=== PATIENT | male | born 1970 | race Caucasian/White ===

== ENCOUNTER → 2016-09-26 | Outpatient (CLI) | payer OTHER ==
[~2016-09-26] MED LIST: CELE200C PO; GLUC1TAB69 PO; MULT1TAB52 PO
[2016-09-26 10:44] LABS: BASO # 0.1 x10^3/uL (0.0-0.2); BASO % 1 % (0-3); EOS % 6 % (0-3); HEMATOCRIT 43.9 % (39.0-53.0); HEMOGLOBIN 15.5 g/dL (13.0-17.5); LYMPH # 2.6 x10^3/uL (1.0-4.8); LYMPH % 33 % (24-48); MEAN CORPUSCULAR HEMOGLOBIN 29 pg (25-35); MEAN CORPUSCULAR HGB CONC 35 g/dL (31-37); MEAN CORPUSCULAR VOLUME 84 fL (79-100); MONO % 7 % (0-9); NEUT % 53 % (31-73); PLATELET COUNT 259 x10^3/uL (140-400); RED BLOOD COUNT 5.25 x10^6/uL (4.30-5.70); RED CELL DISTRIBUTION WIDTH 13.2 % (11.5-14.5); WHITE BLOOD COUNT 7.9 x10^3/uL (4.0-11.0)
[2016-09-26 10:58] LABS: ALBUMIN 3.7 g/dL (3.4-5.0); CALCIUM 9.1 mg/dL (8.5-10.1); CREATININE 1.1 mg/dL (0.7-1.3); GFR 71.8; POTASSIUM 4.2 mmol/L (3.5-5.1); PROTHROMBIN TIME PATIENT 12.9 SEC (11.7-14.0)
[2016-09-26 12:22] LABS: BILIRUBIN,URINE NEGATIVE (NEG); GLUCOSE,URINE NEGATIVE (NEG); NITRITE,URINE NEGATIVE (NEG); PROTEIN,URINE NEGATIVE (NEG-TRACE); UROBILINOGEN,URINE 0.2 mg/dL (0.2 mg/dL)
[2016-09-26 13:05] LABS: BACTERIA,URINE 0 /HPF (0-FEW); RBC,URINE 0 /HPF (0-2); SQUAMOUS EPITHELIAL CELL,UR FEW /LPF; WBC,URINE 0 /HPF (0-4)
--- NOTE | 2016-09-26 13:07 | EKG ---
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
--- NOTE | 2016-09-26 13:40 | RAD ---
Indication preop. Anticipated knee replacement. PA and lateral views of the chest were obtained. No prior imaging of the chest is available. The heart and pulmonary vessels appear normal. The lungs are clear. There is no pleural fluid or pneumothorax. The bony structures appear grossly intact. IMPRESSION: No acute or focal process is seen in the chest
== END | disposition home or self-care (01) ==
LOC: SURGPAT 15:34
PROVIDERS: ATTEND Orthopaedic Surgery
DX: Z01.818 Encounter for other preprocedural examination (principal)
CPT/HCPCS: 36415; 71020; 80048; 81001; 82040; 85027; 85610; 85651; 85730; 87641; 93005

== ENCOUNTER 2016-10-25 05:50 | Inpatient (IN) | payer OTHER ==
[2016-10-24] MEDS: IV RINGERS,LACTATED 1000ML 1,000 ML IV SCH (20:08)
[2016-10-25] VITALS (8 sets, daily range): BP systolic 119–139; BP diastolic 68–82
[~2016-10-25] VITALS: Ht 167.6 cm; Wt 83.9 kg
[~2016-10-25 05:50] MED LIST changes: +HYDROmorphone 2 MG/ML VIAL IV PRN; +LIDOCAINE 1% 1 ML SYRINGE. ID PRN; +MEPERIDINE PF 25 MG/ML VIAL. IV PRN; +MIDAZOLAM HCL/PF 2 MG/2 ML VIAL. IV PRN; +MORPHINE SULFATE 4 MG/ML DISP.SYRIN. IV PRN; +PROCHLORPERAZINE 10 MG/2 ML VIAL. IV PRN; +diphenhydrAMINE 50 MG/ML VIAL IV PRN; +fentaNYL PF VIAL 100 MCG/2 ML VIAL IV PRN
[2016-10-25] MEDS ORDERED: MORPHINE SULFATE 5 MG, KETOROLAC TROMETHAMINE 30 MG, ROPIVacaine 0.5% PF 60 ML, EPINEPH... INT ART ONE ×5 (06:00)
[2016-10-25] MEDS ORDERED: TRANEXAMIC ACID 1,000 MG in IV NORMAL SALINE 50ML 50 ML INJ ONE ×2 (06:00→08:00)
[2016-10-25] MEDS ORDERED: HYDROcodone/APAP 7.5/325MG 1 TAB TABLET ONE (06:11)
[2016-10-25] MEDS: IV RINGERS,LACTATED 1000ML 1,000 ML IV SCH (06:29)
[2016-10-25 06:55] LABS: INR 1.1 (0.8-1.1); PROTHROMBIN TIME PATIENT 13.4 SEC (11.7-14.0)
[2016-10-25] MEDS ORDERED: HYDROcodone/APAP 7.5/325MG 1 TAB TABLET PO ONE (07:00)
[2016-10-25] MEDS ORDERED: DEXAMETHASONE SOD PHOS 20 MG/5 ML VIAL. ONE (07:09)
[2016-10-25] MEDS ORDERED: LIDOCAINE 2% PF Vial for OR 5 ML VIAL. ONE (07:09)
[2016-10-25] MEDS ORDERED: ONDANSETRON PF 4 MG/2 ML VIAL. ONE (07:09)
[2016-10-25] MEDS ORDERED: PROPOFOL 20 ML IV ONE (07:09)
[2016-10-25] MEDS ORDERED: MIDAZOLAM HCL/PF 2 MG/2 ML VIAL. ONE (07:11)
[2016-10-25] MEDS ORDERED: fentaNYL PF VIAL 250 MCG/5 ML VIAL ONE (07:11)
--- NOTE | 2016-10-25 07:31 | ACF ---
Admission Forms Criteria MUSCULOSKELETAL DISEASE GRG Clinical Indications for Admission to Inpatient Care (Place 'X' for any and all applicable criteria): Hospital admission is needed for appropriate care of the patient because of 1 or more of the following: [ ]I. Fracture, dislocation, or other musculoskeletal injury requiring inpatient care(medical) as indicated by 1 or more of the following(4)(5)(6)(7) [ ]a) Vertebral fracture requiring observation for instability or neurologic compromise (8) [ ]b) Compartment syndrome (proven or cannot be ruled out during observation level of care) (9) [ ]c) Limb-threatening injury [ ]d) Major injury requiring inpatient stabilization such as traction initiation or external fixation before internal fixation or closure of complex or open fracture [ ]e) Major injury requiring inpatient treatment after emergency or observation level care (as appropriate) [ ]f) Severe pain requiring acute inpatient management [ ]g) Injury with suspicion of abuse or neglect (eg., child, dependent elderly) [ ]II. Newly diagnosed or suspected bone, joint, or orthopedic device infection (e.g., osteomyelitis, septic arthritis) needing 1 or more of the following(1)(2)(3) [ ]a) IV antibiotics that cannot be initiated in other than inpatient setting (e.g., patient too unstable or home infusion not available) [ ]b) Device removal or replacement [ ]c) Bone or soft tissue debridement [ ]d) Joint drainage (drain placement or repetitive aspirations) [ ]III. Severe rheumatologic disease (e.g., systemic lupus erythematosus, rheumatoid arthritis) with complications or comorbidities (Also use Optimal Recovery Care Criteria or General Recovery Criteria as appropriate on the basis of predominant condition), including 1 or more of the following( 10)(11)(12)(13) [ ]a) Severe infection (e.g., SENIOR DATASTAGE DEVELOPER infection, sepsis) (14) [ ]b) Respiratory complications, including 1 or more of the following : [ ]i) Pleural effusion with respiratory compromise [ ]ii) Pulmonary hypertension with congestive failure [ ]iii) Respiratory failure [ ]iv) Pulmonary hemorrhage (15) [ ]c) Hematologic disease, including 1 or more of the following: [ ]i) Coagulopathy with bleeding [ ]ii) Thrombosis with hypercoagulable state [ ]iii) Thrombotic thrombocytopenic purpura [ ]d) Cerebritis with seizures, psychosis, or other severe abnormalities [ ]e) Vertebral destruction with monitoring needed for cervical myelopathy& possible respiratory compromise [ ]f) Exacerbation that requires inpatient treatment (e.g., intravenous immunosuppression) (16) [ ]g) Acute renal failure [ ]h) Cerebritis with seizures, psychosis, Altered mental status, or other neurologic abnormalities [ ]i) Pericardial effusion with tamponade [ ]j) Vertebral destruction, with monitoring needed for cervical myelopathy and possible respiratory compromise [ ]IV. Severe vasculitis with complications or comorbidities (Also use Optimal Recovery Care Criteria General Recovery Criteria as appropriate on the basis of predominant condition), including 1 or more of the following(11)(12)(17)(18)(19)(20) [ ]a) Exacerbation that requires inpatient treatment (e.g., intravenous immunosuppression) (19)(21) [ ]b) Pulmonary hemorrhage (15) [ ]c) SENIOR DATASTAGE DEVELOPER vasculitis with seizures, psychosis, Altered mental status that is severe or persistent, or other severe abnormalities (22) [ ]d) Cerebral infarction [ ]e) Gastrointestinal ischemia [ ]f) Gangrene or threatened amputation [ ]g) Renal failure (16) [ ]h) Other significant complications of vasculitis ( eg., tissue or organ ischemia, organ dysfunction ) [ ]V. Severe myopathy as indicated by 1 or more of the following (28)(29) [ ]a) New onset of airway compromise or inability to swallow [ ]b) Respiratory deterioration with observation needed for impending respiratory failure [ ]c) Exacerbation that requires inpatient treatment (e.g., intravenous immunosuppression) [ ]. Severe crystal gout (arthropathy) indicated by 1 or more of the following (23)(24) [ ]a) Severe pain requiring acute inpatient management [ ]b) Exacerbation that requires inpatient treatment (e.g., intravenous treatment) [ ]VII.Rhabdomyolysis and 1 or more of the following (25)(26)(27) [ ]a) Acute renal failure [ ]b) Need for intravenous hydration after emergency or observation level care (as appropriate) [ ]c) Inability to maintain oral hydration [ ]d) Change in mental status [ ]e) Electrolyte abnormality that remains after emergency or observation level care (as appropriate) [ ]VIII Post amputation complication, as indicated by ANY ONE of the following [ ]a) Infection [ ]b) Dehiscence [ ]c) Myodesis failure [X]IX. Severe pain requiring acute inpatient management due to musculoskeletal condition [ ]X. Musculoskeletal Disease and ALL of the following: [ ]a) Symptom or finding for which emergency and observation care have failed or are not considered appropriate (Use General Criteria: Observation Care as appropriate) [ ]b) Presence of ANY ONE of the following [ ]i) A General Admission Criteria [ ]ii) A Pediatric General Admission Criteria The original [facility] [employer] content created by [email or web address] has been revised. The portions of the content which have been revised are identified through the use of italic text or in bold, and [facility] has neither reviewed nor approved the modified material. All other unmodified content is copyright [facility]. Please see references footnoted in the original [facility] edition 2016 Admission Criteria Met?: Yes APRIL YU Oct 25, 2016 07:31
--- NOTE | 2016-10-25 09:24 | HP ---
ADMIT DATE: 10/25/2016 PRINCIPAL DIAGNOSIS: Medial compartment degenerative joint disease and right knee pain. HISTORY OF PRESENT ILLNESS: The patient is a 46-year-old male who has undergone extensive nonoperative treatment, failing injections, activity modification, and most recently used an neighborhood coordinator brace that gave him significant relief of his pain. After the use of the neighborhood coordinator brace he feels markedly increased pressure on the knee and difficulty doing very minimal activities, even taking a shower, walking around near bedtime and he feels weak with some giving out with the knee. In addition, with more vigorous activities with the brace, he has more difficulties keeping it in place and for those reasons wanted to proceed with a more definitive treatment of his issues. PAST MEDICAL HISTORY: Really has minimal medical history. PAST SURGICAL HISTORY: Previous history of knee surgeries. FAMILY HISTORY: Denies any significant family history. SOCIAL HISTORY: Denies smoking or drug use. Occasional alcohol consumption, is a social drinker only. MEDICATIONS: List really only includes Celebrex, Osteo Bi-Flex and vitamins ALLERGIES: HE HAS NO KNOWN DRUG ALLERGIES. SPECIFICALLY, HE HAS TOLERATED PERCOCET WELL IN THE PAST. REVIEW OF SYSTEMS: Denies any chest pain, shortness of breath, fever, chills, constitutional symptoms of any type, significant mainly for the right knee pain and limitations somewhat summarized above. PHYSICAL EXAMINATION: VITAL SIGNS: Per admission sheet. HEENT: Atraumatic, normocephalic. HEART: Regular rate and rhythm. LUNGS: Clear to auscultation bilaterally. ABDOMEN: Benign. EXTREMITIES: Examination of the right knee reveals slight varus deformity, mild patellofemoral crepitus, without tilt or instability. ____ medial collateral ligament, but otherwise good ligament stability, particularly the ACL. He has normal examination of the contralateral knee, normal alignment, stability of bilateral hips and ankles with intact motor function, distal pulses, sensation, reflexes and skin in both lower extremities throughout. IMPRESSION: Primary osteoarthritis, right knee, medial compartment. TREATMENT PLAN: I had previously discussed with him in clinic the risks, benefits, postoperative course of the planned unicompartmental arthroplasty, possibility of continued use of the neighborhood coordinator brace downsides of which he identified in the history of present illness. We talked about the fact that this would preserve more of his kinematics of the knee and while he eventually develops more pain in other compartments, may need revision to a total knee arthroplasty. I think given his young age and activity level and the specific distribution of his disease, feel that this is a good trade-off and hopeful that this may be a treatment for much more longer term for him. We talked about possibility of a tibial osteotomy, relative disadvantages of that, in terms of revision to a total knee arthroplasty in the future if required, and the possibilities of even with this procedure, infection, premature wear, loosening, instability, nerve or blood vessel damage, medical or other anesthetic complications among others. He verbalizes understanding of all these and wants to proceed with surgical evaluation and treatment, which will occur today with [facility] admission to follow. MIKHAIL OLMSTEAD MD DR: CYNTHIA/nts JOB#: [id number] / [id number]
[2016-10-25] MEDS ORDERED: SEVOFLURANE > 120 MINUTES. IH ONE (10:02)
--- NOTE | 2016-10-25 11:11 | PDOC ---
BRIEF OPERATIVE NOTE Date: Oct 25, 2016 Pre-Op Diagnosis right knee medial compartment djd, previous intact ACL reconstruction Post-Op Diagnosis same Procedure Performed right knee Meade unicondylar arthroplasty, removal retained ACL tibial fixation screw Surgeon Katharine Anesthesia Type: General Blood Loss 100cc Specimens Obtained cartilage surfaces to pathology Findings above, isolated medial disease, ACL intact Complications none MIKHAIL OLMSTEAD MD Oct 25, 2016 11:11
[2016-10-25] MEDS ORDERED: DEXTROSE 50% 25 GM / 50ML DISP.SYRIN. IV PRN (11:15)
[2016-10-25] MEDS ORDERED: fentaNYL PF VIAL 100 MCG/2 ML VIAL IV PRN ×2 (11:15)
[2016-10-25] MEDS ORDERED: MORPHINE SULFATE 4 MG/ML DISP.SYRIN. IV PRN (11:15)
[2016-10-25] MEDS ORDERED: HYDROcodone/APAP 7.5/325MG 1 TAB TABLET PO PRN (11:15)
[2016-10-25] MEDS ORDERED: PROCHLORPERAZINE 10 MG/2 ML VIAL. IV PRN (11:15)
[2016-10-25] MEDS ORDERED: ZOLPIDEM 5 MG TABLET. PO PRN (11:15)
[2016-10-25] MEDS ORDERED: diphenhydrAMINE 50 MG/ML VIAL IV PRN (11:15)
[2016-10-25] MEDS ORDERED: oxyCODONE/APAP 7.5/325 1 TAB TABLET PO PRN (11:15)
[2016-10-25] MEDS ORDERED: oxyCODONE/APAP 5/325 1 TAB TABLET PO PRN (11:15)
[2016-10-25] MEDS ORDERED: ACETAMINOPHEN 325 MG TABLET. PO PRN (11:15)
[2016-10-25] MEDS ORDERED: traMADol 50 MG TABLET PO PRN ×2 (11:15)
[2016-10-25] MEDS ORDERED: 0.9 % SODIUM CHLORIDE 10 ML DISP.SYRIN. IV PRN (11:15)
[2016-10-25] MEDS ORDERED: CALCIUM CARBONATE 500 MG TAB.CHEW PO PRN (11:15)
[2016-10-25] MEDS ORDERED: MORPHINE SULFATE 2 MG/ML DISP.SYRIN. IV PRN (11:15)
[2016-10-25] MEDS: fentaNYL PF VIAL 100 MCG/2 ML VIAL IV PRN ×2 (11:33→12:01)
--- NOTE | 2016-10-25 11:39 | RAD ---
Indication postop. AP and lateral views of the right knee were obtained. Hemiarthroplasty and an orthopedic screw are noted. Postoperative changes are seen in the soft tissues. No unexpected finding is seen
[2016-10-25] MEDS: IV DEXTROSE 5 %-0.45 % NACL 1,000 ML IV SCH ×2 (11:59→21:11)
[2016-10-25] MEDS ORDERED: WARFARIN 7.5 MG TABLET. PO ONE (16:00)
[2016-10-25] MEDS: FERROUS SULFATE 325 MG TABLET. PO SCH (16:14)
[2016-10-25] MEDS: CELECOXIB 200 MG CAPSULE. PO SCH (21:12)
[2016-10-25] MEDS: HYDROcodone/APAP 10/325 1 TAB TABLET PO PRN (21:12)
[2016-10-26 02:29] VITALS: BP 125/63
[2016-10-26] MEDS: IV DEXTROSE 5 %-0.45 % NACL 1,000 ML IV SCH (03:11)
[2016-10-26 05:42] LABS: INR 1.9 (0.8-1.1); PROTHROMBIN TIME PATIENT 20.4 SEC (11.7-14.0)
[2016-10-26] MEDS ORDERED: MAGNESIUM HYDROXIDE 2,400 MG/30 ML ORAL.SUSP. PO PRN (06:00)
[2016-10-26 07:20] VITALS: BP 124/75
[2016-10-26 07:52] LABS: HEMOGLOBIN 13.3 g/dL (13.0-17.5)
[2016-10-26] MEDS ORDERED: MULTIVITAMIN with MINERAL TABLET. PO SCH (09:00)
[2016-10-26] MEDS ORDERED: SENNOSIDES/DOCUSATE 8.6/50MG TABLET. PO SCH (09:00)
[2016-10-26] MEDS: FERROUS SULFATE 325 MG TABLET. PO SCH (09:10)
[2016-10-26] MEDS: CELECOXIB 200 MG CAPSULE. PO SCH (09:10)
[2016-10-26] MEDS: HYDROcodone/APAP 10/325 1 TAB TABLET PO PRN (09:11)
--- NOTE | 2016-10-26 12:31 | OP ---
DATE OF SURGERY: 10/25/2016 PREOPERATIVE DIAGNOSIS: Degenerative joint disease, right knee. POSTOPERATIVE DIAGNOSIS: Degenerative joint disease, right knee. PROCEDURE: Right Dewart medial unicompartmental arthroplasty, right knee. SURGEON: Bebeto Alcantar M.D. PURCHASE PRICE ANALYST: Suki Muñoz. ESTIMATED BLOOD LOSS: 75 mL. COMPLICATIONS: None. OPERATIVE INDICATIONS: The patient is a 46-year-old male with severely limiting right knee pain, worse with activity initially and it has been unresponsive to injections and other nonoperative management, specifically, I placed him in an architectural examiner brace, which gave him good relief for initial activity, but he had difficulties with steadying up the brace despite multiple attempts and indicates that after activity during the day, when he takes the brace off, even for very simple activity, such as getting in the shower or walking around a little bit before bed, has very severe pain and instability, which again is extremely limiting to him in his daily activities. We therefore talked about the possibility of arthroplasty of his knees, specifically, a unicondylar arthroplasty, given his isolated disease and we had gone over risks, benefits, postoperative course of the procedure, including the possibility of infection, nerve or blood vessel damage, medical or other anesthetic complications among others as well as premature wear or loosening, possibility of eventual conversion over to another procedure if the wear progresses in other compartments or other issues occur that necessitated. All his questions were answered. Consent was obtained and he agrees to proceed with operative evaluation and treatment. OPERATIVE TECHNIQUE: The patient was identified, procedure verified, patient placed in the supine position on operating table and then the laterally placed leg cortes was used for the thigh rest and thigh tourniquet to place the leg optimally for the procedure. All other bony prominences were well padded and after timeout was performed, the patient and procedure identified and verified. The thigh tourniquet was inflated and a midline incision was made with a medial parapatellar approach. Fat pad was excised. There was ____ significant patellar chondromalacia or osteophytes present. The lateral compartment was well preserved as was the reconstructed anterior cruciate ligament. The medial compartment was again noted to be degenerative with significant anterolateral wear primarily and the procedure was confirmed. The tibial cutting guide was first placed, centered down the tibial crest and with the second metatarsal. The guide was placed in the medial compartment, after sizing, confirming a size medium having best fit to the distal femur consistent with preoperative templating and the tibial guide was clamped together with the other guide for resection level and was pinned. Resection level initially looked excessive based on the wear and I made less generous cut, but that was actually required to be recut during the procedure to achieve an adequate joint space to accommodate the available spacers. Intramedullary guide was then placed in the femur and after osteophytes were removed, the central line of the weightbearing surface was marked, 4 mm hole anteriorly and 6 mm hole at the center where then drilled with the 6 mm hole was desired on the central line of the femoral surface. The posterior cutting jig was then alignment to these drill holes and verified to be placed, such that a square gap was obtained at the posterior condyle area. The zero peg was then placed and the distal reamer carried out along with a trial femoral and tibial component. The component was noted to be tight in extension and a total of an additional 3 mm reamed after distal femoral condyle and any remaining excess bone was removed with rongeurs. As mentioned before, an additional 2 mm of tibial cut were required to accommodate desired spacer within thinnest level and I elected to not make additional tibial cut to preserve the existing bone. Nevertheless at this point, spacer was well fitting. Flexion and extension gaps were excellent. The anatomic alignment of the knee and the tension of the medial collateral ligament were restored and tracking noted to be excellent. The spacer was stable and not having any excessive contact with the medial wall, but again was in excellent alignment. The impingement drilling and chiseling guide was then placed to remove any excess bone, anteriorly and posteriorly, to prevent any impingement. The desired size C tibial tray was placed and pinned and the tibial notch cut was made and provisional trialing was carried out of the entire construct with the medium femur, a size D tibial tray and a 3 mm spacer, excellent motion, stability, and ligament balance were obtained and the trial components were removed. Bony surfaces were cleaned by pulse lavage and dried thoroughly. Polymethyl methacrylate cement was used to cement the tibial component in. The tibial component was placed from posterior to extrude any excess cement anteriorly ideally and was removed with a Speculator elevator. Femoral component was then placed and again excess cement removed. Trial 3-mm spacer was placed and provided equivalent stability down once it was trialed with cement dry. Trial was then removed and additional thorough irrigation carried out with normal saline solution. Previous electrocautery had coagulated any intracapsular bleeding. The intra-articular mixture was injected into the surrounding capsule and a right medial medium sized 3-mm spacer was popped in place, giving equivalent motion and stability to that as described before. The retinaculum was closed with #2 Ethibond suture in an interrupted fashion and a running #1 Vicryl suture, subcutaneous closure with buried Vicryl sutures, subcuticular Monocryl closure. Sterile dressings were applied. The patient was returned to recovery room in stable condition having tolerated the procedure well. Tourniquet time just slightly an excess of 2 hours and toes were noted to be warm and pink following deflation of the tourniquet. Please note, Suki Muñoz, graphic design assistant was present for the procedure, assisted in the prepping, draping, retraction, and subcuticular closure. BEBETO ALCANTAR MD DR: CYNTHIA/mikhail JOB#: [id number] / [id number] ecc Mike Escalante MD
[2016-10-26] MEDS ORDERED: WARF3TAB54 PO (13:38)
[2016-10-26] MEDS ORDERED: OXYC-323 PO (13:39)
[2016-10-26] MEDS ORDERED: WARFARIN 3 MG TABLET. PO ONE (14:00)
[2016-10-26] MEDS ORDERED: BISACODYL 10 MG SUPP.RECT. PR PRN (16:00)
--- NOTE | 2016-10-27 03:18 | DS ---
DATE OF DISCHARGE: 10/26/2016 PRINCIPAL DIAGNOSIS: Right unicondylar knee arthroplasty. DISCHARGE MEDICATIONS: Include Percocet 5/325 one to two p.o. q. 4 hours p.r.n. pain, Coumadin as directed by anticoagulation clinic, resume home medications. DISCHARGE INSTRUCTIONS: Include report any redness, drainage, fever, chills, uncontrolled pain or other problems. Otherwise, weightbearing as tolerated. ACTIVITY: As tolerated. Physical therapy at [facility] starting tomorrow, day after discharge. Follow up with Dr. Alcantar in 2 weeks. BRIEF DESCRIPTION OF HOSPITAL COURSE: The patient underwent an uneventful unicondylar right knee arthroplasty, medial, on date of admission. Postoperatively, did well with physical therapy as well as on postop day #1. Initially was taking some hydrocodone for pain, but after physical therapy, was less well controlled and better controlled on Percocet. Otherwise, got along quite well safely with his activities of daily living and was discharged home in stable condition. MIKHAIL ALCANTAR MD DR: CYNTHIA/mikhail JOB#: [id number] / [id number] CHE Gallego
--- NOTE | 2016-10-27 13:45 | PATHOLOGY ---
PATHOLOGY REPORT * * * * * * * * FINAL DIAGNOSIS: Fragments of bone and soft tissue, "right knee bone and tissue," joint resection: - Degeneration of cartilage consistent with degenerative joint disease. (NAVIN:; d/t: 10/27/16) REPORT ELECTRONICALLY SIGNED BY: Josias Tom M.D. DATE/TIME: 10/27/2016 13:44 * * * * * * * * GROSS PATHOLOGY: The specimen is received in formalin labeled "Jarred Johnson, right knee bone and tissue". Received are multiple segments of light muhammad bone displaying smooth articulating surfaces measuring 7.5 x 6.2 x 1.9 cm in aggregate dimensions. The specimen is submitted representatively in cassette A1, following decalcification. (CAA; 10/26/2016) INITIAL CPT CODE(S): A; 93016, 71655 Professional services [place] [address] Technical services performed by [facility] at [address] [place] [address], [address] [address]. [address]. Boris Ellis fax: SPECIMEN(S) RECEIVED: A.Right knee bone and tissue CLINICAL HISTORY: Right knee pain PATIENT: JARRED JOHNSON /AGE: 10 1970 (Age: 46) PATIENT #: [id number] ALT CASE #: SPECIMEN COLLECTION DATE: 10/25/2016 SPECIMEN RECEIVED DATE: 10/25/2016 [facility] - [address] [place] [address] - PHONE: [phone] * * * END OF REPORT * * *
== END 2016-10-26 15:35 | disposition home or self-care (01) | DRG 470 ==
LOC: OPSVCIP 05:50 → EDUNIT# 07:30 → 4 SOUTHEST 12:13
PROVIDERS: ADMIT Orthopaedic Surgery; ATTEND Orthopaedic Surgery
PROC: 0SRC0L9 Replacement of Right Knee Joint with Medial Unicondylar Synthetic Substitute, Cemented, Open Approach (ICD-10-PCS; principal; 2016-10-25 07:30)
DX: M17.11 Unilateral primary osteoarthritis, right knee (principal)
CPT/HCPCS: 36415; 73560; 85014; 85018; 85610; 85730; 86850; 86900; 86901; 88305; 88311; J0171; J0690; J0780; J1100; J1885; J2250; J2270; J2405; J2704; J2795; J3010; J7030; J7120; 97116; 97150; 97530; 97535; C1769

== ENCOUNTER → 2020-08-04 | Outpatient (CLI) | payer OTHER ==
[~2020-08-04] MED LIST changes: -HYDROmorphone 2 MG/ML VIAL IV PRN; -LIDOCAINE 1% 1 ML SYRINGE. ID PRN; -MEPERIDINE PF 25 MG/ML VIAL. IV PRN; -MIDAZOLAM HCL/PF 2 MG/2 ML VIAL. IV PRN; -MORPHINE SULFATE 4 MG/ML DISP.SYRIN. IV PRN; +MULT-445 PO; -MULT1TAB52 PO; +OXYC1TAB15 PO; -PROCHLORPERAZINE 10 MG/2 ML VIAL. IV PRN; +WARF3TAB54 PO; -diphenhydrAMINE 50 MG/ML VIAL IV PRN; -fentaNYL PF VIAL 100 MCG/2 ML VIAL IV PRN
== END ==
LOC: LAB 11:24
PROVIDERS: ATTEND Orthopaedic Surgery
DX: Z01.812 Encounter for preprocedural laboratory examination (principal); S46.012A Strain of muscle(s) and tendon(s) of the rotator cuff of left shoulder, initial encounter; X58.XXXA Exposure to other specified factors, initial encounter; Y93.89 Activity, other specified; Y92.89 Other specified places as the place of occurrence of the external cause; Y99.8 Other external cause status; Z20.822 Contact with and (suspected) exposure to COVID-19
CPT/HCPCS: U0003; U0005

== ENCOUNTER 2020-08-07 08:59 | Day surgery (SDC) | payer OTHER ==
[~2020-08-07] VITALS: Ht 167.6 cm; Wt 84.8 kg
[~2020-08-07 08:59] MED LIST changes: +HYDROmorphone 2 MG/ML VIAL IVP PRN; +IV RINGERS,LACTATED 1000ML 1,000 ML IV SCH; +MORPHINE SULFATE 2 MG/ML VIAL. IVP PRN; +PROCHLORPERAZINE 10 MG/2 ML VIAL. IVP PRN; +fentaNYL PF VIAL 100 MCG/2 ML VIAL IVP PRN
[2020-08-07] MEDS ORDERED: fentaNYL PF VIAL 100 MCG/2 ML VIAL ONE (09:09)
[2020-08-07] MEDS ORDERED: MIDAZOLAM HCL/PF 2 MG/2 ML VIAL. ONE (09:09)
[2020-08-07] MEDS ORDERED: SEVOFLURANE > 120 MINUTES. IH ONE (09:09)
[2020-08-07] MEDS ORDERED: LIDOCAINE 2% PF 5 ML VIAL. ONE (09:10)
[2020-08-07] MEDS ORDERED: PROPOFOL 10 MG/ML (20ML) VIAL. IV ONE (09:10)
[2020-08-07] MEDS ORDERED: ONDANSETRON PF 4 MG/2 ML VIAL. ONE (09:10)
[2020-08-07] MEDS ORDERED: DEXAMETHASONE SOD PHOS 4 MG/ML VIAL ONE (09:10)
[2020-08-07] MEDS ORDERED: BUPIVACAINE MPF 0.5% 30 ML VIAL. ONE (09:57)
[2020-08-07] MEDS ORDERED: EPINEPHrine VIAL 30 MG/30 ML VIAL ONE (10:35)
[2020-08-07] MEDS ORDERED: ePHEDrine PF IN SALINE 50 MG/10 ML SYRINGE. IV ONE (11:36)
[2020-08-07] MEDS ORDERED: PHENYLEPHRINE in 0.9% NACL PF 1 MG/10 ML SYRINGE. IV ONE (12:37)
[2020-08-07] MEDS ORDERED: OXYC1TAB19 PO (13:18)
--- NOTE | 2020-08-07 13:20 | DISCH ---
DISCHARGE INSTRUCTIONS Condition on Discharge Condition on Discharge: Stable Activity After Discharge Activity Instructions for Disc: Other, see below (No active lifting of elbow away from the body, may do fine motor use with the left arm elbow into the side such as eating writing and typing) Lifting Instructions after Dis: No pulling or pushing Exercise Instruction after Dis: Exercise per therapy Weight Bearing Status after Di: Non weight bearing Diet after Discharge Diet after Discharge: Regular Diet Texture: Regular Wound Incision Care Wound/Incision Care: Ice to area for comfort, Change dressing (May remove dressing in 2 days may then shower no soaking until sutures removed, report any redness or ongoing drainage) Community/Resources/Services Services at Discharge: PT EVALUATE & TREAT (Passive range of motion of left shoulder only for 4 weeks postoperatively) Contacting the after DC Call your doctor for: Concerns you may have Follow-Up Follow up with: Dr. Alcantar or Michael 10 days Treatment/Equipment after DC Adaptive Equipment Issued: Dmitriy wheeled MIKHAIL Obregon MD Aug 07, 2020 13:20
--- NOTE | 2020-08-07 13:29 | PDOC4 ---
Operative Note Operative Note Date of surgery: 08/07/2020 Preoperative diagnosis: Rotator cuff and superior labral tear Postoperative diagnosis: Same with type II SLAP tear and near full-thickness distal supraspinatus tear Operative procedure: Left shoulder arthroscopy arthroscopic rotator cuff repair and biceps tenodesis and labral debridement Surgeon: Katharine Assist: Raghu Greer first aid trainer Anesthesia: General plus scalene block Estimated blood loss: 15 cc Complications: None Operative indications: Please see my orthopedic clinic note for detailed operative indications and note that there is suspicion of a very high-grade or possibly full-thickness rotator cuff tear and superior labral pathology. I had gone over with him the risks benefits postoperative course of arthroscopic treatment and plan for rotator cuff repair and likely biceps tenodesis along with addressing any other pathological conditions at the time of surgery. I gone through the specific restrictions and the rationale with him and the risks of nonhealing infection nerve or blood vessel damage continued pain medical or other anesthetic complications among others he agrees to proceed with surgical evaluation and treatment Operative text: Patient was identified procedure verified patient placed in the supine position on the operating table. After adequate amounts of general anes thesia plus a pre-existing scalene block were obtained he was placed in the decubitus position left side up all bony prominences were well-padded. Shoulder was examined under anesthesia found to have full range of motion and no instability. The left shoulder was then prepped and draped in standard sterile fashion placed in the arthroscopic arm cortes with a total of 10 pounds of traction and after timeout was performed patient procedure identified and verified a standard posterior portal was established an anterior portal established using spinal needle localization and the shoulder joint was systematically examined. He was noted to have significant labral fraying around the entire superior margin which was trimmed back to stable tissue but the biceps anchor was intact showing a type II SLAP tear. Biceps was then tagged and tenotomized for later plan tenodesis. He did appear to have a concern for full-thickness tear of the anterior portion of the supraspinatus adjacent to the biceps tendon. The remainder of the supraspinatus insertion was intact at the joints surface and he had a normal bare area of the humerus as well as normal capsule ligamentous structures and a well-preserved glenohumeral articulation. Subacromial bursa was entered and there was a large amount of inflamed subacromial bursa anteriorly and when that was cleared away a near full- thickness tear of the entire supraspinatus insertion was noted and the footprint was debrided back to stable bleeding tissue with the arthroscopic bur but not d ecorticated. A total of 2 double loaded juggernaut Biomet anchors were placed with 2 #2 max braid sutures each. These were placed through the supraspinatus tendon in a simple fashion and anchored laterally with a Quatro link knotless peek anchor which provided excellent fixation and a watertight repair was noted under all degrees of internal/external rotation. Bicipital groove was unroofed anteriorly and the biceps tendon retrieved through an anterior portal and tenodesed in the bicipital groove after appropriate tensioning of the biceps with a Quatro bolt tenodesis screw 9 x 16 mm and excellent fixation and tensioning of the biceps were noted. Joint was drained of arthroscopic fluid portals closed with nylon suture sterile dressings were applied patient was placed in an immobilizer returned to recovery room in stable condition having tolerated procedure well. Raghu quijano assist was present for the procedure assisted in the patient positioning prepping draping retraction closure and dressings MIKHAIL OLMSTEAD MD Aug 07, 2020 13:29
[2020-08-07] MEDS ORDERED: oxyCODONE/APAP 7.5/325 1 TAB TABLET PO ONE (13:45)
[2020-08-07 14:05] VITALS: BP 146/79
== END 2020-08-07 14:30 | disposition home or self-care (01) ==
LOC: SURG 08:59
PROVIDERS: ATTEND Orthopaedic Surgery
DX: S43.432A Superior glenoid labrum lesion of left shoulder, initial encounter (principal); M75.102 Unspecified rotator cuff tear or rupture of left shoulder, not specified as traumatic; M25.512 Pain in left shoulder; I10 Essential (primary) hypertension; G47.33 Obstructive sleep apnea (adult) (pediatric); M19.90 Unspecified osteoarthritis, unspecified site; Z96.651 Presence of right artificial knee joint; Z79.899 Other long term (current) drug therapy; Z98.890 Other specified postprocedural states; X58.XXXA Exposure to other specified factors, initial encounter; Y93.89 Activity, other specified; Y92.89 Other specified places as the place of occurrence of the external cause; Y99.8 Other external cause status
CPT/HCPCS: 29827; 29828; A4209; A4565; A4930; C1713; J0171; J0690; J1100; J2250; J2370; J2405; J2704; J3010; J3490